=== PATIENT | female | born 2000 | race African-American/Black ===

== ENCOUNTER 2024-03-26 13:10 | Inpatient (IN) | payer BC, OTHER ==
[~2024-03-26] VITALS: Ht 162.6 cm; Wt 104.8 kg
[2024-03-26] MEDS ORDERED: KETOROLAC TROMETHAMINE 15 MG INJ ONE (14:08)
[2024-03-26 14:31] LABS: BASOPHILS # (AUTO) 0.1 K/UL (0.0-0.2); BASOPHILS % (AUTO) 0.4 % (0.0-2.0); EOSINOPHILS # (AUTO) 0.2 K/uL (0.0-0.7); EOSINOPHILS % (AUTO) 1.6 % (0.0-7.0); HEMATOCRIT 40.9 % (31.2-41.9); HEMOGLOBIN 13.1 g/dL (10.9-14.3); LYMPHOCYTES # (AUTO) 1.1 K/uL (0.8-4.8); LYMPHOCYTES % (AUTO) 7.5 % (20.5-51.5); MEAN CORPUSCULAR HEMOGLOBIN 26.3 uug (24.7-32.8); MEAN CORPUSCULAR HGB CONC 32 g/dL (32.3-35.6); MEAN CORPUSCULAR VOLUME 81.9 fL (75.5-95.3); MONOCYTES # (AUTO) 0.8 K/uL (0.1-1.30); MONOCYTES % (AUTO) 5.8 % (0.0-11.0); NEUTROPHILS # (AUTO) 12.5 K/uL (1.8-8.9); NEUTROPHILS % (AUTO) 84.7 % (38.5-71.5); PLATELET COUNT (AUTO) 356 K/uL (179-408); RED BLOOD CELL COUNT(AUTO) 4.99 MIL/uL (3.63-4.92); WHITE BLOOD COUNT (AUTO) 14.7 K/uL (3.8-11.8)
[2024-03-26 14:32] LABS: DIFFERENTIAL COMMENT 1
[2024-03-26] MEDS: IV NORMAL SALINE 1000 ML BAG IV ONE ×3 (14:37→19:45)
[2024-03-26 14:41] LABS: CALCIUM 9.6 mg/dL (8.5-10.1); CARBON DIOXIDE 29 mmol/L (21-32); CHLORIDE 103 mmol/L (98-107); CREATININE 1.2 mg/dL (0.6-1.3); GLUCOSE 136 mg/dL (74-106); POTASSIUM 3.4 mmol/L (3.5-5.1); SODIUM SERUM 145 mmol/L (136-145); UREA NITROGEN, BLOOD 12 mg/dL (7-18)
[2024-03-26] MEDS: KETOROLAC TROMETHAMINE 15 MG INJ IVP ONE (14:48)
[2024-03-26 14:49] LABS: ALANINE AMINOTRANSFERASE 86 U/L (14-59); ALBUMIN 3.3 g/dL (3.4-5.0); ALKALINE PHOSPHATASE 141 U/L (50-136); ASPARTATE AMINOTRANSFERASE 18 U/L (15-37); BILIRUBIN,DIRECT 0.3 mg/dL (0.0-0.2); BILIRUBIN,TOTAL 0.8 mg/dL (0.2-1.0); LIPASE 48 U/L (16-77); TOTAL PROTEIN, SERUM 8.7 g/dL (6.4-8.2)
[2024-03-26 14:50] LABS: LACTIC ACID 2.6 mmol/L (0.4-2.0)
[2024-03-26 14:55] LABS: PREGNANCY TEST SERUM QUAN < 1 miul/L (0-6)
[2024-03-26] MEDS ORDERED: METOCLOPRAMIDE HCL 10 MG/2 ML VIAL ONE (16:12)
[2024-03-26] MEDS: METOCLOPRAMIDE HCL 10 MG/2 ML VIAL IV ONE (16:15)
[2024-03-26] MEDS ORDERED: METRONIDAZOLE 500 MG/NS 100ML 100 ML IV ONE (16:50)
[2024-03-26] MEDS ORDERED: CEFTRIAXONE 1 G VIAL ONE (16:51)
[2024-03-26] MEDS: METRONIDAZOLE 500 MG/NS 100 ML PIGGYBACK IV ONE (17:01)
[2024-03-26] MEDS: CEFTRIAXONE 2 G in IV DEXTROSE 5% 100 ML IV ONE (17:27)
[2024-03-26] MEDS ORDERED: MORPHINE SULFATE 4 MG/1 ML DISP.SYRIN IV PRN (19:45)
[2024-03-26] MEDS ORDERED: PIPERACILLIN SODIUM/TAZOBACTAM 3.375 G in IV DEXTROSE 5% 50 ML IV ONE (21:00)
[2024-03-26] MEDS ORDERED: PIPERACILLIN SODIUM/TAZOBACTAM 3.375 G in IV DEXTROSE 5% 50 ML IV SCH (22:00)
[2024-03-26] MEDS: IV LACTATED RINGERS SOLUTION 1,000 ML IV PRN (22:07)
[2024-03-26 22:15] VITALS: BP 160/105; TEMP 97.6; O2SAT 100
[2024-03-26] MEDS: PANTOPRAZOLE SODIUM 40 MG VIAL IV SCH (22:15)
[2024-03-26 22:17] LABS: *BILIRUBIN,URIN 2+ (NEGATIVE); *BLOOD, URINE 3+ (NEGATIVE); *CLARITY,URINE CLOUDY (CLEAR); *COLOR,URINE DARK YELLOW (YELLOW); *KETONES,URINE 4+ (NEGATIVE); *PROTEIN,URINE 2+ (NEGATIVE); LEUKOCYTE ESTERASE ,URINE NEGATIVE (NEGATIVE); NITRITE, URINE NEGATIVE (NEGATIVE); PH,URINE 5.5 (5.0-8.0); UGLUCOSE NEGATIVE (NEGATIVE)
[2024-03-26] MEDS: ENOXAPARIN SODIUM 40 MG/0.4 ML DISP.SYRIN SQ SCH (22:20)
[2024-03-26 22:23] LABS: *URINE HCG, QUAL NEGATIVE (NEGATIVE)
[2024-03-26] MEDS ORDERED: PIPERACILLIN/TAZOBACTAM/D5W 50 ML IV ONE ×2 (22:46→22:47)
[2024-03-26 23:03] LABS: BACTERIA,URINE FEW /HPF (NONE SEEN); MUCUS,URINE MODERATE /LPF (0-FEW); RBC,URINE 80-100 /HPF (0-3); SQUAMOUS EPITHELIAL CELL,UR MODERATE /HPF (NONE SEEN); WBC,URINE 0-3 /HPF (0-3)
[2024-03-26] MEDS: PIPERACILLIN SODIUM/TAZOBACTAM 3.375 G in IV DEXTROSE 5% 50 ML IV NR (23:05)
[2024-03-27 05:28] VITALS: BP 160/82; TEMP 98.7; O2SAT 99
[2024-03-27 07:07] LABS: BASOPHILS # (AUTO) 0.1 K/UL (0.0-0.2); BASOPHILS % (AUTO) 0.7 % (0.0-2.0); EOSINOPHILS # (AUTO) 0.3 K/uL (0.0-0.7); EOSINOPHILS % (AUTO) 2.7 % (0.0-7.0); HEMATOCRIT 35.3 % (31.2-41.9); HEMOGLOBIN 11.6 g/dL (10.9-14.3); LYMPHOCYTES # (AUTO) 1.6 K/uL (0.8-4.8); MEAN CORPUSCULAR HEMOGLOBIN 26.6 uug (24.7-32.8); MEAN CORPUSCULAR HGB CONC 33 g/dL (32.3-35.6); MEAN CORPUSCULAR VOLUME 80.7 fL (75.5-95.3); MONOCYTES # (AUTO) 0.7 K/uL (0.1-1.30); MONOCYTES % (AUTO) 6.3 % (0.0-11.0); NEUTROPHILS # (AUTO) 8.7 K/uL (1.8-8.9); NEUTROPHILS % (AUTO) 76.3 % (38.5-71.5); PLATELET COUNT (AUTO) 323 K/uL (179-408); RED BLOOD CELL COUNT(AUTO) 4.38 MIL/uL (3.63-4.92); RED CELL DISTRIBUTION WIDTH 16.2 % (12.3-17.7); WHITE BLOOD COUNT (AUTO) 11.4 K/uL (3.8-11.8)
[2024-03-27 07:17] LABS: DIFFERENTIAL COMMENT 1
[2024-03-27 07:35] LABS: CREATININE 1.1 mg/dL (0.6-1.3); MAGNESIUM 1.8 mg/dL (1.8-2.4); PHOSPHOROUS 3.1 mg/dL (2.5-4.9); POTASSIUM 3.1 mmol/L (3.5-5.1)
[2024-03-27] MEDS ORDERED: POTASSIUM CHLORIDE 50 ML IV SCH (09:15)
[2024-03-27] MEDS: POTASSIUM CHLORIDE 10 MEQ, LIDOCAINE-MPF 1% 1 ML in IV DEXTROSE 5% 100 ML IV SCH (11:02)
[2024-03-27 11:59] VITALS: BP 164/80; TEMP 99; O2SAT 97
[2024-03-27] MEDS: PIPERACILLIN SODIUM/TAZOBACTAM 3.375 G in IV DEXTROSE 5% 100 ML IV SCH (14:51)
[2024-03-27 17:07] VITALS: BP 168/90; TEMP 98.4; O2SAT 100
[2024-03-27 20:01] VITALS: BP 174/105; TEMP 98; O2SAT 99
[2024-03-27] MEDS: hydrALAZINE HCL 20 MG/1 ML VIAL IV ONE (21:28)
[2024-03-27 22:30] VITALS: BP 153/90; O2SAT 99
[2024-03-28] MEDS: hydrALAZINE HCL 20 MG/1 ML VIAL IV ONE (04:50)
[2024-03-28 04:58] VITALS: BP 187/102; TEMP 98.2; O2SAT 100
[2024-03-28 06:27] LABS: BASOPHILS # (AUTO) 0.1 K/UL (0.0-0.2); EOSINOPHILS # (AUTO) 0.2 K/uL (0.0-0.7); EOSINOPHILS % (AUTO) 2.6 % (0.0-7.0); HEMATOCRIT 35.9 % (31.2-41.9); HEMOGLOBIN 11.9 g/dL (10.9-14.3); LYMPHOCYTES # (AUTO) 1.5 K/uL (0.8-4.8); LYMPHOCYTES % (AUTO) 17.1 % (20.5-51.5); MEAN CORPUSCULAR HEMOGLOBIN 26.9 uug (24.7-32.8); MEAN CORPUSCULAR HGB CONC 33 g/dL (32.3-35.6); MONOCYTES # (AUTO) 0.8 K/uL (0.1-1.30); MONOCYTES % (AUTO) 8.6 % (0.0-11.0); NEUTROPHILS # (AUTO) 6.2 K/uL (1.8-8.9); NEUTROPHILS % (AUTO) 70.7 % (38.5-71.5); PLATELET COUNT (AUTO) 310 K/uL (179-408); RED BLOOD CELL COUNT(AUTO) 4.44 MIL/uL (3.63-4.92); RED CELL DISTRIBUTION WIDTH 16.1 % (12.3-17.7); WHITE BLOOD COUNT (AUTO) 8.8 K/uL (3.8-11.8)
[2024-03-28 06:28] LABS: DIFFERENTIAL COMMENT 1
[2024-03-28 06:30] VITALS: BP 153/104; O2SAT 99
[2024-03-28 06:34] LABS: CREATININE 1.1 mg/dL (0.6-1.3); POTASSIUM 2.9 mmol/L (3.5-5.1)
[2024-03-28 06:37] LABS: BILIRUBIN,DIRECT 0.3 mg/dL (0.0-0.2); BILIRUBIN,TOTAL 0.7 mg/dL (0.2-1.0); TOTAL PROTEIN, SERUM 7.7 g/dL (6.4-8.2)
[2024-03-28] MEDS ORDERED: AMOX-430 PO (08:40)
[2024-03-28] MEDS ORDERED: ACID1TAB4 PO (08:40)
[2024-03-28] MEDS ORDERED: ONDA4TAB5 PO (08:40)
[2024-03-28] MEDS: POTASSIUM CHLORIDE 20 MEQ TAB.PRT.SR PO ONE ×2 (09:00→12:46)
[2024-03-28] MEDS: POTASSIUM CHLORIDE 10 MEQ, LIDOCAINE-MPF 1% 1 ML in IV DEXTROSE 5% 100 ML IV SCH ×2 (09:27→22:44)
[2024-03-28] MEDS: ONDANSETRON 4 MG/2 ML VIAL IV PRN (10:53)
[2024-03-28 11:57] VITALS: BP 154/104; TEMP 97.8; O2SAT 98
[2024-03-28] MEDS: IV D5LR 1,000 ML IV PRN (13:09)
[2024-03-28 15:54] VITALS: BP 164/95; TEMP 98.4; O2SAT 97
[2024-03-28 19:00] VITALS: BP 172/98; TEMP 97.8; O2SAT 93
[2024-03-29 06:00] VITALS: BP 195/104; TEMP 98; O2SAT 100
[2024-03-29 07:46] LABS: BASOPHILS # (AUTO) 0.3 K/UL (0.0-0.2); BASOPHILS % (AUTO) 4.6 % (0.0-2.0); EOSINOPHILS # (AUTO) 0.2 K/uL (0.0-0.7); EOSINOPHILS % (AUTO) 2.5 % (0.0-7.0); HEMATOCRIT 36.3 % (31.2-41.9); HEMOGLOBIN 11.9 g/dL (10.9-14.3); LYMPHOCYTES # (AUTO) 1.4 K/uL (0.8-4.8); LYMPHOCYTES % (AUTO) 20.4 % (20.5-51.5); MEAN CORPUSCULAR HEMOGLOBIN 26.5 uug (24.7-32.8); MEAN CORPUSCULAR HGB CONC 33 g/dL (32.3-35.6); MEAN CORPUSCULAR VOLUME 80.8 fL (75.5-95.3); MONOCYTES # (AUTO) 0.4 K/uL (0.1-1.30); MONOCYTES % (AUTO) 5.6 % (0.0-11.0); NEUTROPHILS # (AUTO) 4.6 K/uL (1.8-8.9); NEUTROPHILS % (AUTO) 66.9 % (38.5-71.5); PLATELET COUNT (AUTO) 333 K/uL (179-408); RED BLOOD CELL COUNT(AUTO) 4.49 MIL/uL (3.63-4.92); RED CELL DISTRIBUTION WIDTH 16.3 % (12.3-17.7); WHITE BLOOD COUNT (AUTO) 6.8 K/uL (3.8-11.8)
[2024-03-29 07:52] LABS: DIFFERENTIAL COMMENT 1
[2024-03-29 07:54] LABS: BILIRUBIN,TOTAL 0.6 mg/dL (0.2-1.0); CREATININE 1.1 mg/dL (0.6-1.3); TOTAL PROTEIN, SERUM 7.9 g/dL (6.4-8.2)
[2024-03-29] MEDS: POTASSIUM CHLORIDE 20 MEQ POWDER PACKET PO ONE ×3 (09:23→17:52)
[2024-03-29 12:07] VITALS: BP 166/108; TEMP 97.8; O2SAT 99
[2024-03-29] MEDS: MAGNESIUM SULFATE/D5W 100 ML IV SCH (12:30)
[2024-03-29 16:06] VITALS: BP 176/110; TEMP 97.9; O2SAT 98
[2024-03-29 21:33] VITALS: BP 168/111; TEMP 98.2; O2SAT 98
[2024-03-30 04:00] VITALS: BP 179/100; TEMP 97.8; O2SAT 96
[2024-03-30] MEDS: PANTOPRAZOLE SODIUM 40 MG TABLET.DR PO SCH (06:03)
[2024-03-30 09:25] LABS: BASOPHILS # (AUTO) 0.1 K/UL (0.0-0.2); BASOPHILS % (AUTO) 1.9 % (0.0-2.0); EOSINOPHILS # (AUTO) 0.1 K/uL (0.0-0.7); EOSINOPHILS % (AUTO) 1.9 % (0.0-7.0); HEMATOCRIT 35.7 % (31.2-41.9); HEMOGLOBIN 11.6 g/dL (10.9-14.3); LYMPHOCYTES # (AUTO) 1.3 K/uL (0.8-4.8); LYMPHOCYTES % (AUTO) 21.7 % (20.5-51.5); MEAN CORPUSCULAR HEMOGLOBIN 26.3 uug (24.7-32.8); MEAN CORPUSCULAR HGB CONC 32 g/dL (32.3-35.6); MEAN CORPUSCULAR VOLUME 81.1 fL (75.5-95.3); MONOCYTES # (AUTO) 0.4 K/uL (0.1-1.30); MONOCYTES % (AUTO) 6.7 % (0.0-11.0); NEUTROPHILS % (AUTO) 67.8 % (38.5-71.5); PLATELET COUNT (AUTO) 286 K/uL (179-408); RED CELL DISTRIBUTION WIDTH 15.8 % (12.3-17.7); WHITE BLOOD COUNT (AUTO) 5.9 K/uL (3.8-11.8)
[2024-03-30 09:31] LABS: CALCIUM 8.9 mg/dL (8.5-10.1); CREATININE 1.2 mg/dL (0.6-1.3); MAGNESIUM 1.8 mg/dL (1.8-2.4); POTASSIUM 3.6 mmol/L (3.5-5.1)
[2024-03-30 09:52] LABS: DIFFERENTIAL COMMENT 1
[2024-03-30 12:02] VITALS: BP 156/102; TEMP 98.2; O2SAT 97
[2024-03-30 16:36] VITALS: BP 156/106; TEMP 98.2; O2SAT 97
[2024-03-30 19:00] VITALS: BP 151/99; TEMP 98; O2SAT 98
[2024-03-30] MEDS ORDERED: IV NS 1000 ML 1,000 ML IV PRN (22:30)
[2024-03-31 06:00] VITALS: BP 164/94; TEMP 98.4; O2SAT 97
[2024-03-31 09:24] LABS: BASOPHILS # (AUTO) 0.1 K/UL (0.0-0.2); BASOPHILS % (AUTO) 0.8 % (0.0-2.0); EOSINOPHILS # (AUTO) 0.1 K/uL (0.0-0.7); EOSINOPHILS % (AUTO) 2.3 % (0.0-7.0); HEMATOCRIT 35.8 % (31.2-41.9); HEMOGLOBIN 11.7 g/dL (10.9-14.3); LYMPHOCYTES # (AUTO) 1.7 K/uL (0.8-4.8); LYMPHOCYTES % (AUTO) 27.1 % (20.5-51.5); MEAN CORPUSCULAR HEMOGLOBIN 26.6 uug (24.7-32.8); MEAN CORPUSCULAR HGB CONC 33 g/dL (32.3-35.6); MEAN CORPUSCULAR VOLUME 81.5 fL (75.5-95.3); MONOCYTES # (AUTO) 0.5 K/uL (0.1-1.30); MONOCYTES % (AUTO) 7.7 % (0.0-11.0); NEUTROPHILS # (AUTO) 3.8 K/uL (1.8-8.9); NEUTROPHILS % (AUTO) 62.1 % (38.5-71.5); PLATELET COUNT (AUTO) 313 K/uL (179-408); RED CELL DISTRIBUTION WIDTH 16.2 % (12.3-17.7); WHITE BLOOD COUNT (AUTO) 6.1 K/uL (3.8-11.8)
[2024-03-31 09:26] LABS: DIFFERENTIAL COMMENT 1
[2024-03-31 11:00] VITALS: BP 155/105; TEMP 98.6; O2SAT 100
[2024-03-31 11:32] LABS: CALCIUM 9.3 mg/dL (8.5-10.1); CREATININE 1.1 mg/dL (0.6-1.3); MAGNESIUM 1.8 mg/dL (1.8-2.4); PHOSPHOROUS 3.1 mg/dL (2.5-4.9); POTASSIUM 2.8 mmol/L (3.5-5.1)
== END 2024-03-31 15:20 | disposition home or self-care (01) ==
LOC: ER 13:10 → MEDSURG3 21:22
PROVIDERS: ADMIT Nurse Practitioner Acute Care; ATTEND Nurse Practitioner Acute Care
PROC: 05HF33Z Insertion of Infusion Device into Left Cephalic Vein, Percutaneous Approach (ICD-10-PCS; principal; 2024-03-27)
PROC: B54NZZA Ultrasonography of Left Upper Extremity Veins, Guidance (ICD-10-PCS; principal; 2024-03-27)
PROC: B54MZZA Ultrasonography of Right Upper Extremity Veins, Guidance (ICD-10-PCS; 2024-03-31)
PROC: 05HD33Z Insertion of Infusion Device into Right Cephalic Vein, Percutaneous Approach (ICD-10-PCS; 2024-03-31)
DX: K80.00 Calculus of gallbladder with acute cholecystitis without obstruction (principal); E87.20 Acidosis, unspecified; E66.01 Morbid (severe) obesity due to excess calories; Z68.39 Body mass index [BMI] 39.0-39.9, adult; D25.9 Leiomyoma of uterus, unspecified; E83.42 Hypomagnesemia; E87.6 Hypokalemia; R62.50 Unspecified lack of expected normal physiological development in childhood; N13.30 Unspecified hydronephrosis
CPT/HCPCS: 36415; 71045; 76700; 78445; 83605; 83690; 83735; 84100; 84132; 84484; 84703; 85025; 85730; 87040; 93005; A4606; A4663; A9537; G0378; J0360; J0696; J1650; J1885; J2001; J2405; J2470; J2543; J2765; J3475; J3480; J3490; J7040; J7120

== ENCOUNTER 2024-04-09 15:53 | Emergency (ER) | payer OTHER ==
[~2024-04-09] VITALS: Ht 172.7 cm; Wt 81.6 kg
[~2024-04-09 15:53] MED LIST: ACID1TAB4 PO; AMOX-430 PO; ONDA4TAB5 PO
[2024-04-09] MEDS ORDERED: Paxlovid (16:14)
[2024-04-09 17:02] VITALS: BP 98/78; O2SAT 98
== END 2024-04-09 17:02 | disposition home or self-care (01) ==
LOC: ER 16:03
DX: U07.1 COVID-19 (principal); Z79.899 Other long term (current) drug therapy
CPT/HCPCS: A4606; A4663